=== PATIENT | female | born 1995 | race Caucasian/White ===

== ENCOUNTER 2018-09-11 15:41 | Emergency (ER) | payer MEDICAID ==
[~2018-09-11] VITALS: Ht 154.9 cm; Wt 65.8 kg
[2018-09-11 16:00] VITALS: BP_SYST 120
--- NOTE | 2018-09-11 16:07 | NUR ---
Patient to ER bed 2 to gown for evaluation. Side rails up. Report given to Noah ALONZO.
--- NOTE | 2018-09-11 16:25 | NUR ---
PATIENT SITTING UP ON BED. A&Ox4. RESPIRATIONS EVEN AND UNLABORED. NO SOB. NO CHEST PAIN. PATIENT WITH C/O NAUSEA, VOMITING, AND DIARRHEA SINCE LAST NIGHT. PER PT, SHE HAD 3 EPISODES OF VOMITING AND DIARRHEA LAST NIGHT AND 2 EPISODES OF VOMITING AND DIARRHEA THIS AM. PT DENIES OF ANY ABDOMINAL PAIN. NO SYMPTOMS. PATIENT IN NO ACUTE DISTRESS. NO OBJECTIVE S/SX OF PAIN OBSERVED. WILL CONTINUE TO MONITOR.
--- NOTE | 2018-09-11 16:27 | NUR ---
DR. RODRIGUEZ AT BEDSIDE AND EXAMINING PATIENT.
[2018-09-11] MEDS ORDERED: DIPHENOXYLATE HCL/ATROP SULF 2.5 MG TAB PO ONE (17:00)
[2018-09-11] MEDS ORDERED: ONDANSETRON HCL 4 MG/2 ML VIAL IM ONE (17:00)
--- NOTE | 2018-09-11 17:05 | NUR ---
ZOFRAN AND LOMOTIL ADMINISTERED PER DR. RODRIGUEZ ORDERS. TOLERATED WELL. PLEASE SEE eMAR FOR DETAILS.
[2018-09-11 17:10] VITALS: BP_SYST 120
--- NOTE | 2018-09-11 17:10 | NUR ---
Patient given written and verbal discharge instructions and verbalizes understanding. ER MD discussed with patient the results and treatment provided. Patient in stable condition. ID arm band removed. Rx of LOMOTIL AND ZOFRAN given. Patient educated on pain management and to follow up with PMD. Pain Scale 0/10. Opportunity for questions provided and answered. Medication side effect fact sheet provided.
== END 2018-09-11 17:10 | disposition home or self-care (01) ==
LOC: SED 15:41
DX: K52.9 Noninfective gastroenteritis and colitis, unspecified (principal); R03.0 Elevated blood-pressure reading, without diagnosis of hypertension
CPT/HCPCS: 81025; 96372; 99283; J2405